=== PATIENT | male | born 1950 | race Hispanic/Latino ===

== ENCOUNTER → 2018-08-29 | Outpatient (CLI) | payer OTHER | END | disposition home or self-care (01) | LOC: RAH 12:49 | PROVIDERS: ATTEND Internal Medicine | DX: J34.3 Hypertrophy of nasal turbinates (principal); J32.9 Chronic sinusitis, unspecified | CPT/HCPCS: 70486 ==

== ENCOUNTER 2019-10-20 07:00 | Day surgery (SDC) | payer OTHER ==
[2019-10-19 15:46] VITALS: BP 154/78
[2019-10-20] VITALS (16 sets, daily range): BP systolic 123–137; BP diastolic 57–72
[~2019-10-20] VITALS: Ht 167.6 cm; Wt 72.9 kg
[~2019-10-20 07:00] MED LIST: TAMS-1 PO
[2019-10-20] MEDS ORDERED: CEFTRIAXONE SODIUM 1 GM ONE ×2 (09:08→10:41)
[2019-10-20] MEDS ORDERED: LACTATED RINGERS 1000ML 1,000 ML IV ONE (09:09)
[2019-10-20] MEDS ORDERED: IOHEXOL-350 50ML VIAL IV ONE (09:20)
[2019-10-20] MEDS ORDERED: PROPOFOL 10 MG/ML 20ML VIAL IV ONE (10:35)
[2019-10-20] MEDS ORDERED: LIDOCAINE PF 2% 5ML ABBOJECT ONE (10:35)
[2019-10-20] MEDS ORDERED: GLYCOPYRROLATE 1 MG/5 ML SYRINGE ONE (10:35)
[2019-10-20] MEDS ORDERED: NEOSTIGMINE 5MG/5ML SYR IV ONE (10:35)
[2019-10-20] MEDS ORDERED: DEXAMETHASONE SOD PHOSPHATE 10MG/ML 1ML VIAL ONE (10:35)
[2019-10-20] MEDS ORDERED: MIDAZOLAM HCL 1 MG/ML 2ML VIAL ONE (10:35)
[2019-10-20] MEDS ORDERED: ONDANSETRON HCL 4 MG/2 ML VIAL ONE (10:35)
[2019-10-20] MEDS ORDERED: FENTANYL CITRATE PF 50 MCG/1 ML 5ML AMP IV ONE (10:36)
[2019-10-20] MEDS ORDERED: ROCURONIUM 10MG/1ML SYR 10 MG/ML ML ONE (10:36)
[2019-10-20] MEDS ORDERED: EPHEDRINE SULFATE 50 MG/ML AMPULE ONE (10:54)
[2019-10-20] MEDS ORDERED: OPIUM/BELLADONNA ALKALOIDS 1 EACH SUPP.RECT RC ONE (11:18)
[2019-10-20] MEDS ORDERED: PHENAZOPYRIDINE HCL 200 MG TABLET ONE (13:09)
== END 2019-10-20 14:00 | disposition home or self-care (01) ==
LOC: DAH 07:00
PROVIDERS: ATTEND Urology
DX: N13.2 Hydronephrosis with renal and ureteral calculous obstruction (principal); M19.90 Unspecified osteoarthritis, unspecified site; F41.9 Anxiety disorder, unspecified; F32.9 Major depressive disorder, single episode, unspecified; Z90.49 Acquired absence of other specified parts of digestive tract; Z79.899 Other long term (current) drug therapy; Z98.890 Other specified postprocedural states
CPT/HCPCS: 36415; 52356; 74420; 82360; A4213; A4215; A4221; A4222; A4223; A4344; A4510; A4600; A4663; A5113; A6260; C1758 ×2; C1769; C2617; J0696; J1100; J2001; J2250; J2405; J2704; J2710; J3010; J3490 ×2; J7030; J7120 ×2; Q9967

== ENCOUNTER 2019-11-03 22:43 | Observation (INO) | payer OTHER ==
[2019-11-03 23:16] LABS: BASOPHILS % (AUTO) 0.2 % (0.0-5.0); EOSINOPHILS % (AUTO) 0.7 % (0.0-8.0); HEMATOCRIT 43.6 % (42-54); LYMPHOCYTES % (AUTO) 2.5 % (21.0-51.0); MEAN CORPUSCULAR HEMOGLOBIN 28.9 pg (27.0-33.0); MEAN CORPUSCULAR HGB CONC 33.5 g/dL (32.0-36.0); MEAN CORPUSCULAR VOLUME 86.2 fL (79-99); MONOCYTES % (AUTO) 4.6 % (3.0-13.0); NEUTROPHILS % (AUTO) 91.6 % (40.0-77.0); PLATELET COUNT (AUTO) 205 K/uL (130-400); RED BLOOD CELL COUNT(AUTO) 5.06 MIL/uL (4.50-6.20); RED CELL DISTRIBUTION WIDTH 12.4 % (11.0-15.5); WHITE BLOOD COUNT (AUTO) 11.4 K/uL (4.8-10.8)
[2019-11-03 23:18] LABS: APPEARANCE,URINE Cloudy (CLEAR); BILIRUBIN,URINE Negative (NEGATIVE); COLOR,URINE Dark Yellow (YELLOW); GLUCOSE, URINE (UA) Negative (NEGATIVE); KETONES,URINE Trace mg/dL (NEGATIVE); LEUKOCYTE ESTERASE ,URINE Moderate (NEGATIVE); NITRATE,URINE Positive (NEGATIVE); OCCULT BLOOD,URINE Moderate (NEGATIVE); PROTEIN,URINE Trace mg/dL (NEGATIVE)
[2019-11-03 23:22] LABS: CREATININE 1.1 mg/dL (0.5-1.5); POTASSIUM 3.5 mmol/L (3.5-5.1)
[2019-11-03 23:36] LABS: BACTERIA,URINE Moderate /HPF (None Seen); RBC,URINE 26-50 /HPF (0-1); WBC,URINE >100 /HPF (0-1)
[2019-11-03 23:37] LABS: SQUAMOUS EPITHELIAL CELL,UR 0-2 /HPF (0-2)
[2019-11-03] MEDS ORDERED: IBUPROFEN 400 MG TABLET ONE (23:50)
[2019-11-03] MEDS ORDERED: ZOSYN 3.375GM+NS 50ML 50 ML IV ONE (23:56)
[2019-11-04 00:06] LABS: INR 0.99 (0.85-1.15); PARTIAL THROMBOPLASTIN TIME 30.2 SEC (26.3-35.5); PROTHROMBIN TIME 10.7 SEC (9.6-11.6)
[2019-11-04 00:09] LABS: ALBUMIN 3.5 g/dL (3.5-5.0); BILIRUBIN,DIRECT 0.2 mg/dL (0.0-0.3); BILIRUBIN,TOTAL 1.1 mg/dL (0.2-1.0); TOTAL PROTEIN, SERUM 7.5 g/dL (6.0-8.3)
[2019-11-04] MEDS ORDERED: METOCLOPRAMIDE 10 MG/2 ML VIAL ONE (00:14)
[2019-11-04] MEDS ORDERED: ACETAMINOPHEN EXTRA STRENGTH 500 MG TABLET ONE (01:07)
[2019-11-04 01:57] VITALS: BP 101/50
[2019-11-04] MEDS ORDERED: FINA5TAB41 PO (02:10)
[2019-11-04] MEDS ORDERED: ESCI10TA54 PO (02:10)
[2019-11-04] MEDS ORDERED: ACETAMINOPHEN 325 MG TAB PO PRN ×3 (03:15→11:45)
[2019-11-04 04:00] VITALS: BP 93/48
[2019-11-04] MEDS ORDERED: ZOSYN 3.375GM+NS 50ML 50 ML IV ONE (05:11)
[2019-11-04 08:00] VITALS: BP 96/56
[2019-11-04] MEDS ORDERED: ZOSYN 3.375GM+NS 50ML 50 ML IV SCH (08:00)
[2019-11-04] MEDS ORDERED: ONDANSETRON HCL 4 MG/2 ML VIAL IV PRN (11:45)
[2019-11-04] MEDS ORDERED: LEVO500T2 PO (11:50)
[2019-11-04 12:00] VITALS: BP 92/51
[2019-11-04] MEDS ORDERED: SODIUM CHLORIDE 0.9% 1000ML 1,000 ML IV SCH (12:00)
[2019-11-04] MEDS ORDERED: LEVOFLOXACIN 500 MG TABLET PO SCH (12:00)
[2019-11-04 16:00] VITALS: BP 102/51
[2019-11-04] MEDS ORDERED: FAMOTIDINE 20MG TAB 20 MG TAB PO SCH (21:00)
[2019-11-04] MEDS ORDERED: FINASTERIDE 5 MG TABLET PO SCH (21:00)
[2019-11-04] MEDS ORDERED: TAMSULOSIN HCL 0.4 MG CAP.ER.24H PO SCH (21:00)
[2019-11-05] MEDS ORDERED: CITALOPRAM 20 MG TABLET PO SCH (09:00)
== END 2019-11-04 18:05 | disposition home or self-care (01) ==
LOC: EDH 22:43 → EDHIP 11-04 00:30 → 3BH 11-04 02:14
PROVIDERS: ADMIT Internal Medicine; ATTEND Internal Medicine
DX: K57.90 Diverticulosis of intestine, part unspecified, without perforation or abscess without bleeding (principal); F32.9 Major depressive disorder, single episode, unspecified; N40.1 Benign prostatic hyperplasia with lower urinary tract symptoms; M19.90 Unspecified osteoarthritis, unspecified site; E86.0 Dehydration; N30.90 Cystitis, unspecified without hematuria; B96.1 Klebsiella pneumoniae [K. pneumoniae] as the cause of diseases classified elsewhere; N13.8 Other obstructive and reflux uropathy; N28.1 Cyst of kidney, acquired; Z87.442 Personal history of urinary calculi
CPT/HCPCS: 36415; 71045; 74176; 80048; 80076; 81001; 82550; 83605; 83735; 84145; 84484 ×3; 85025; 85610; 85730; 87040 ×2; 87077 ×2; 87088; 87186 ×2; 93005; 96365; 96366; 99291; G0378 ×6; J2543 ×3; J2765; 80053

== ENCOUNTER 2024-12-23 17:43 | Emergency (ER) | payer OTHER ==
[~2024-12-23] VITALS: Ht 167.6 cm; Wt 68.0 kg
[~2024-12-23 17:43] MED LIST changes: +ESCI-8 PO; +FINA5TAB41 PO; +LEVO500T2 PO; -TAMS-1 PO; +TAMS-55 PO
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
[2024-12-23] MEDS: AMOX/CLAV 875/125MG TAB PO ONE (18:52)
[2024-12-23] MEDS: LIDOCAINE HCL 1% 20 ML VIAL INJ STA (18:53)
[2024-12-23] MEDS: NEOMY SULF/BACITRA/POLYMYXIN B 1 EACH PACKET TP ONE (18:55)
[2024-12-23 19:06] VITALS: BP 148/60; PULSE 60; RESP 16; TEMP 98.3; O2SAT 98
[2024-12-23] MEDS ORDERED: AMOX1TAB16 PO (19:07)
[2024-12-23] MEDS ORDERED: MUPI22O TP (19:07)
[2024-12-23] MEDS ORDERED: IBUP-2077 PO (19:07)
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
== END 2024-12-23 19:23 | disposition home or self-care (01) ==
LOC: EDH 17:43
DX: S61.212A Laceration without foreign body of right middle finger without damage to nail, initial encounter (principal); Z79.899 Other long term (current) drug therapy; W54.0XXA Bitten by dog, initial encounter; Y93.89 Activity, other specified; Y92.89 Other specified places as the place of occurrence of the external cause; Y99.8 Other external cause status
CPT/HCPCS: 12001; 90471; 90714; 99283

== ENCOUNTER 2025-02-18 12:43 | Emergency (ER) | payer OTHER ==
[~2025-02-18] VITALS: Ht 165.1 cm; Wt 68.0 kg
[~2025-02-18 12:43] MED LIST changes: +AMOX1TAB16 PO; +IBUP-2077 PO; +MUPI22O TP
--- NOTE | 2025-02-18 12:49 | ERN ---
General Chief Complaint: Knee Injury/Swelling Stated Complaint: LEFT KNEE PAIN Time Seen by MD: 12:45 Source: patient History of Present Illness Initial Comments Patient is a 74-year-old male coming in complaining of left knee pain. Per patient this has been ongoing for several years he really exacerbated the knee yesterday while doing some chores at home. He states that when he walks flexes and extends his knee he does have some discomfort. Allergies: Coded Allergies: No Known Drug Allergies (Unverified Allergy, Unknown, 10/19/19) Home Meds Active Scripts Amoxicillin/Potassium Clav (Amox Tr-K Clv 875-125 mg Tab) 875 Mg-125 Mg Tablet, 1 EACH PO BID for 7 Days, #14 TAB 0 Refills Prov:KASSIE ROJAS NP 12/23/24 Mupirocin (Bactroban 2% Oint) 2 % Oint, 1 APPL TP TID for 5 Days, #15 GM 0 Refills apply to affected area(s) Prov:KASSIE ROJAS NP 12/23/24 Ibuprofen (Ibuprofen 800 mg Tab) 800 Mg Tab, 800 MG PO Q8H PRN for fever or pain, #30 TAB 0 Refills Prov:KASSIE ROJAS NP 12/23/24 Levofloxacin (Levaquin) 500 Mg Tablet, 500 MG PO DAILY, #7 TAB 0 Refills Prov:KATHERIN SORIANO MD 11/04/19 Reported Medications Escitalopram Oxalate (Escitalopram Oxalate) 10 Mg Tablet, 10 MG PO DAILY, TAB 11/04/19 Finasteride (Finasteride) 5 Mg Tablet, 5 MG PO DAILY, TAB 11/04/19 Tamsulosin HCl (Flomax) 0.4 Mg Cap.er.24h, 0.4 MG PO DAILY, CAPSULE. 10/19/19 Past Medical History Past Medical History: Anxiety, Arthritis Past Surgical History: Cholecystectomy Surgical History Other: HAND ROS Dictation CONSTITUTIONAL: No chills, no fever, no weakness, no diaphoresis, no malaise. HEAD/FACE: No signs of trauma. EENT: No eye pain, no blurred vision, no tearing, no double vision, no ear pain, no ear discharge, no nose pain, no nasal congestion, no throat pain, no throat swelling, no mouth pain. RESPIRATORY: No cough, no orthopnea, no SOB, no stridor, no wheezing. CARDIOVASCULAR: No chest pain, no edema, no palpitations, no syncope. GASTROINTESTINAL/ABDOMINAL: No abdominal pain, no constipation, no diarrhea, no nausea, no vomiting. GENITOURINARY: No abnormal discharge, no dysuria, no frequent urination, no hematuria. No complaints of pain in the genitals. MUSCULOSKELETAL: No back pain, no gout, no joint pain, joint swelling, muscle pain, no muscle stiffness, no neck pain. INTEGUMENTARY: No change in color, no change in hair/nails, no dryness, no lesion, no lumps, no rash. NEUROLOGICAL/PSYCH: No anxiety, not depressed, no emotional problem, no headache, no numbness, no pre-existing deficit, no history of seizures, no tremors, no weakness. HEMATOLOGIC/LYMPHATIC: Not anemic, no history of blood clots, no apparent bleeding, no bruising, glands not swollen. All Systems Negative, Except as Noted. Physical Exam Physical Exam Dictation VITAL SIGNS: Reviewed. GENERAL APPEARANCE: Alert, oriented x3, no acute distress, obese. HEAD AND FACE: Non-traumatic. EYES: PERRL, pink conjunctivas, eyelid no trauma, anterior chamber clear. EARS: Pinnas intact and no signs of trauma or erythema. Ear canals clear and no discharge. TMs no erythema. NOSE: No discharge, no bleeding. OROPHARYNX: Mouth normal, teeth no caries, tongue pink. Pharynx clear, no erythema. Tonsils no exudates, no abscesses noted. Mucous membrane moist. NECK: Supple, non-tender, no thyromegaly, no masses, no JVD, no bruits. BREAST: Deferred. CHEST: No tenderness, no crepitus, no paradoxical movement, no retractions. LUNGS: Clear, well-ventilated, symmetric, no rales, no wheezing, no rhonchi, no stridor, good breath sounds bilaterally. HEART: Regular rate, regular rhythm, no murmur, no gallops. VASCULAR: No peripheral edema. ABDOMEN: Soft, positive bowel sounds, nondistended, no guarding, nontender, no rebound, no masses no hepatomegaly, no splenomegaly, no Landin's sign, no hernias. RECTAL: Deferred. GENITAL: Deferred. NEUROLOGICAL: Normal speech, gross motor function intact, gross sensory function intact. MUSCULOSKELETAL: Neck nontender, full range of motion, back nontender, full range of motion. EXTREMITIES: Nontender, full range of motion. Left knee tenderness on palpation, SKIN: Color pink, dry, no turgor, no rash, no lacerations, no abrasions, no contusions. LYMPHATICS: Deferred. Results Laboratory and Microbiology Labs Reviewed?: Yes MDM MDM: Differential diagnosis: Knee strain, acute on chronic knee pain, Rationale: Tests considered and ordered secondary to shared decision making include: Previous outside records reviewed: Old ER visits. Risk of complication and/or morbidity or mortality of patient management: None Medications-Per medication reconciliation Need for hospitalization: Patient does not meet criteria for hospitalization. Need for emergency major/minor surgery: No Patient is a 74-year-old male coming in complaining of left knee pain. He states he exacerbated his knee yesterday while doing some chores. Knee immobilizer was placed I did advised him appropriate follow up with ongoing evaluation by sports Medicine doctor. He is pending an MRI I advised him to continue with that meeting. Patient will be discharged in stable condition. ED Course Orders Procedure Category Date Status Time Knee Immobilizer EMILY 02/18/25 In Process 12:45 Vital Signs Date Time Temp Pulse Resp B/P (MAP) Pulse Ox O2 Delivery O2 Flow Rate FiO2 02/18/25 12:45 97.9 71 18 154/72 97 Room Air 0 DX & DISP Disposition: Discharge Departure Impression: Primary Impression: Strain of knee and leg, left Condition: Stable Additional Instructions: FOLLOW-UP WITH PRIMARY CARE PROVIDER IN 1 TO 2 DAYS. TAKE MEDICATIONS DIR ECTED HERE IN THE EMERGENCY ROOM. OKAY TO CONTINUE HOME MEDICATIONS UNLESS OTHERWISE DISCUSSED DURING YOUR VISIT IN THE EMERGENCY ROOM TODAY. RETURN TO YOUR NEAREST EMERGENCY ROOM IF SYMPTOMS WORSEN OR IF THERE IS NO IMPROVEMENT. CALL 911 IF YOU NEED IMMEDIATE ASSISTANCE. TAKE TYLENOL [id number] NEEDED AND IF NO CONTRAINDICATIONS ARE PRESENT. INCREASE ORAL HYDRATION. A WOUND CULTURE OR URINE CULTURE WAS ORDERED HERE IN THE EMERGENCY ROOM DEPARTMENT PLEASE FOLLOW-UP WITH PRIMARY CARE PROVIDER AND ADVISE THEM TO GET REPORTS FROM OUR FACILITY. IF YOU HAD ANY MARLYS WRAP/SPLINTS THAT WERE APPLIED HERE, PLEASE DO NOT REMOVE THEM UNTIL YOU SEE YOUR PRIMARY CARE OR SPECIALTY. Referrals: Referrals: KATHERIN SORIANO MD (PCP) Time of Disposition: 12:49 CECI MENJIVAR MD Feb 18, 2025 12:49
[2025-02-18 12:51] VITALS: BP 146/68; PULSE 65; RESP 16; TEMP 98.1; O2SAT 98
--- NOTE | 2025-02-18 13:03 | NUR ---
KNEE IMMOBILIZER PLACED PER MD REQUEST
== END 2025-02-18 12:56 | disposition home or self-care (01) ==
LOC: EDH 12:43
DX: S86.912A Strain of unspecified muscle(s) and tendon(s) at lower leg level, left leg, initial encounter (principal); F41.9 Anxiety disorder, unspecified; M19.90 Unspecified osteoarthritis, unspecified site; Z79.899 Other long term (current) drug therapy; Z90.49 Acquired absence of other specified parts of digestive tract; X58.XXXA Exposure to other specified factors, initial encounter; Y93.89 Activity, other specified; Y92.89 Other specified places as the place of occurrence of the external cause; Y99.8 Other external cause status
CPT/HCPCS: 29505; 99283

== ENCOUNTER → 2025-03-05 | Outpatient (CLI) | payer OTHER ==
--- NOTE | 2025-03-05 12:19 | HMCSR ---
APPROVED REPORT EXAM: Two-dimensional and M-mode echocardiogram with Doppler and color Doppler. INDICATION ICD: Abnormal electrocardiogram R94.31 2D Dimensions RVDd3.1 cmLVEF(%)53.9 (>50%)LVED Vol(simp.)95.0 mL IVSd0.9 (0.7-1.1cm)FS(%)28 %LVES Vol(simp.)41.0 mL LVDd5.0 (3.8-5.6cm)LA (2D)4.6 (1.6-4.0cm)LVEF(%, simp.)57 % PWd0.9 (0.7-1.1cm)Ao Root(2D)3.2 (2.0-3.7cm)LA ESV INDEX (BP)34.42 mL/m2 LVDs3.6 (2.5-4.0cm)LVOT diam2.2 (1.8-2.4cm) IVC diam1.4 cm M-Mode Dimensions EPSS0.8 cm LA (MM)4.5 (1.6-4.0cm) Ao Root(MM)2.7 (2.0-3.7cm) Aortic Valve AoV Vmax1.3 m/Dave Peak GR6.6 mmHgLVOT Vmax1.2 m/s AoV VTI0.3 mAo Mean GR4.2 mmHgLVOT VTI0.27 m CLAUDIO (VMAX)3.46 cm2AVA (VTI) 3.5 cm2 Mitral Valve MV E Vmax72.0 cm/sDECEL Imay959 ms MV A Vmax58.1 cm/sP 1/2 T67 ms E/A ratio1.2MVA (PHT)3.3 cm2 TDI E/E' Medial9.7E/E' Lateral7.5 Medial E' Peak V7.39 cm/sLateral E' Peak V9.55 cm/s Pulmonary Valve PV Vmax0.8 m/sPV VTI0.21 mPV Mean GR1.9 mmHg PV Peak GR2.9 mmHg Tricuspid Valve TR Vmax0.8 m/sRAP (EST) 8 gqTtMZTF42.3 mmHg TR Peak GR2.3 mmHg Left Ventricle The left ventricle is normal size. There is normal left ventricular wall thickness. LVEF is 55-60%. T he left ventricular diastolic function is normal. Right Ventricle The right ventricle is normal size. The right ventricular systolic function is normal. Atria The left atrium size is normal. The right atrium is mildly dilated. Aortic Valve The aortic valve is normal in structure. No aortic regurgitation is present. There is no aortic valvu lar stenosis. Mitral Valve The mitral valve is normal in structure. There is no mitral valve regurgitation noted. There is no mi tral valve stenosis. Tricuspid Valve The tricuspid valve is normal in structure. There is trace of tricuspid valve regurgitation noted. Pulmonic Valve The pulmonary valve is normal in structure. There is no pulmonic valvular regurgitation. Great Vessels The aortic root is normal in size. The IVC is normal in size and collapses <50% with inspiration. Pericardium There is no pericardial effusion. Other Information Quality : AdequateRhythm : NSR Conclusion LVEF is 55-60%. The left ventricular diastolic function is normal. The right atrium is mildly dilated.
== END | disposition home or self-care (01) ==
LOC: RAH 10:40
PROVIDERS: ATTEND Internal Medicine
DX: R94.31 Abnormal electrocardiogram [ECG] [EKG] (principal); D45 Polycythemia vera
CPT/HCPCS: 93306